=== PATIENT | female | born 1985 | race Caucasian/White ===

== ENCOUNTER 2023-08-30 23:06 | Emergency (ER) | payer BC ==
[2023-08-30] MEDS: Sodium Chloride 0.9% 1,000 ML IV ONE (23:35)
[2023-08-30 23:36] LABS: BASOPHILS ABSOLUTE AUTO 0.07 K/uL (0.00-0.20); BASOPHILS PERCENT AUTO 1.1 % (0.0-1.0); EOSINOPHILS PERCENT AUTO 3.3 % (0.0-6.0); HEMATOCRIT 39.7 % (37.0-47.0); HEMOGLOBIN 13.1 g/dL (12.0-16.0); IMMATURE GRAN ABSOLUTE AUTO 0.01 K/uL (0.00-0.05); IMMATURE GRAN PERCENT AUTO 0.2 % (0.0-0.4); LYMPHOCYTES ABSOLUTE AUTO 2.23 K/uL (1.00-4.80); LYMPHOCYTES PERCENT AUTO 36.5 % (24.0-44.0); MEAN CORPUSCULAR VOLUME 96.8 fL (83.0-99.0); MEAN PLATELET VOLUME 11.1 fL (9.4-12.3); MONOCYTES ABSOLUTE AUTO 0.43 K/uL (0.00-0.80); NEUTROPHILS ABSOLUTE AUTO 3.17 K/uL (1.80-7.70); NEUTROPHILS PERCENT AUTO 51.9 % (41.0-71.0); PLATELET COUNT,PLT 210 K/uL (150-400); WHITE BLOOD CELL COUNT,WBC 6.11 K/uL (3.9-11.3)
[2023-08-30] MEDS: Dexamethasone 4 MG/ML SDV IVPUSH ONE (23:37)
[2023-08-30] MEDS: Prochlorperazine 10 MG/2 ML SDV IVPUSH ONE (23:37)
[2023-08-30] MEDS: diphenhydrAMINE 50 MG/ML SDV IVPUSH ONE (23:37)
[2023-08-30] MEDS: Ketorolac 30 MG/ML SDV IVPUSH ONE (23:37)
[2023-08-30] MEDS: Sodium Chloride 0.9% 2.5 ML Syringe FLUSH PRN (23:37)
[2023-08-30] MEDS: Sodium Chloride 0.9% 10 ML Syringe FLUSH PRN (23:37)
[2023-08-31 00:11] LABS: A/G RATIO 1.3 (0.9-1.6); ALBUMIN 3.8 g/dL (3.4-5.0); CALCIUM 8.7 mg/dL (8.5-10.1); CARBON DIOXIDE,CO2 21.7 mmol/L (21.0-32.0); CREATININE 0.8 mg/dL (0.6-1.0); EST CRCL DRUG DOSING (CG) 71.66 mL/min; PROTEIN TOTAL,TP 6.7 g/dL (6.4-8.2)
== END 2023-08-31 00:42 | disposition home or self-care (01) ==
LOC: MW.ED 23:06
DX: G43.909 Migraine, unspecified, not intractable, without status migrainosus (principal); Z75.8 Other problems related to medical facilities and other health care
CPT/HCPCS: 36415; 80053; 84703; 85025; 96361; 96374; 96375; 99283; J0780; J1100; J1200; J1885; J3490; J7030; 99284

== ENCOUNTER 2024-04-06 16:47 | Emergency (ER) | payer BC | END 2024-04-06 17:25 | disposition left against medical advice (07) | LOC: MW.ED 16:47 | DX: Z53.21 Procedure and treatment not carried out due to patient leaving prior to being seen by health care provider (principal) ==

== ENCOUNTER 2024-04-09 02:23 | Emergency (ER) | payer BC ==
[2024-04-09] MEDS: Sodium Chloride 0.9% 1,000 ML IV ONE (03:15)
[2024-04-09] MEDS: Metoclopramide 10 MG/2 ML SDV IVPUSH ONE (03:48)
[2024-04-09] MEDS: diphenhydrAMINE 50 MG/ML SDV IVPUSH ONE (03:48)
[2024-04-09] MEDS: Ketorolac 30 MG/ML SDV IVPUSH ONE (04:13)
== END 2024-04-09 05:14 | disposition home or self-care (01) ==
LOC: MW.ED 02:23
DX: B34.9 Viral infection, unspecified (principal)
CPT/HCPCS: 87428; 96374; 96375; 99284; J1200; J1885; J2765; J7030; 99282

== ENCOUNTER 2024-06-25 07:49 | Emergency (ER) | payer BC ==
[2024-06-25] MEDS ORDERED: Sodium Chloride 0.9% 10 ML Syringe FLUSH PRN ×2 (08:13→10:11)
[2024-06-25] MEDS ORDERED: Sodium Chloride 0.9% 2.5 ML Syringe FLUSH PRN ×2 (08:13→10:11)
[2024-06-25] MEDS: Ondansetron 4 MG/2 ML SDV IVPUSH ONE (08:24)
[2024-06-25] MEDS: Sodium Chloride 0.9% 1,000 ML IV ONE (08:24)
[2024-06-25] MEDS: Morphine 4 MG/ML Syringe IVPUSH ONE (08:25)
[2024-06-25 08:33] LABS: BASOPHILS ABSOLUTE AUTO 0.03 K/uL (0.00-0.20); BASOPHILS PERCENT AUTO 0.3 % (0.0-1.0); EOSINOPHILS ABSOLUTE AUTO 0.06 K/uL (0.00-0.45); EOSINOPHILS PERCENT AUTO 0.5 % (0.0-6.0); HEMATOCRIT 35.1 % (37.0-47.0); HEMOGLOBIN 11.9 g/dL (12.0-16.0); IMMATURE GRAN ABSOLUTE AUTO 0.06 K/uL (0.00-0.05); IMMATURE GRAN PERCENT AUTO 0.5 % (0.0-0.4); LYMPHOCYTES ABSOLUTE AUTO 1.33 K/uL (1.00-4.80); LYMPHOCYTES PERCENT AUTO 11.9 % (24.0-44.0); MEAN CORPUSCULAR HEMOGLOBIN 31.9 pg (28.0-32.0); MEAN CORPUSCULAR HGB CONC 33.9 g/dL (32.0-36.0); MEAN CORPUSCULAR VOLUME 94.1 fL (83.0-99.0); MEAN PLATELET VOLUME 11.1 fL (9.4-12.3); MONOCYTES ABSOLUTE AUTO 0.95 K/uL (0.00-0.80); MONOCYTES PERCENT AUTO 8.5 % (0.0-8.0); NEUTROPHILS ABSOLUTE AUTO 8.79 K/uL (1.80-7.70); NEUTROPHILS PERCENT AUTO 78.3 % (41.0-71.0); PLATELET COUNT,PLT 140 K/uL (150-400); RED BLOOD CELL COUNT 3.73 M/uL (4.10-5.30); WHITE BLOOD CELL COUNT,WBC 11.22 K/uL (3.9-11.3)
[2024-06-25 09:00] LABS: INR 1.17 (0.86-1.11)
[2024-06-25 09:01] LABS: A/G RATIO 1.1 (0.9-1.6); ALBUMIN 3.9 g/dL (3.4-5.0); BILIRUBIN TOTAL 2.7 mg/dL (0.2-1.0); CALCIUM 9.3 mg/dL (8.5-10.1); CARBON DIOXIDE,CO2 25.7 mmol/L (21.0-32.0); CREATININE 0.8 mg/dL (0.6-1.0); EST CRCL DRUG DOSING (CG) 80.72 mL/min; POTASSIUM,K 3.7 mmol/L (3.5-5.1); PROTEIN TOTAL,TP 7.6 g/dL (6.4-8.2)
[2024-06-25] MEDS: Iopamidol 755 MG/ML 500 ML Multipack Bottle IVPUSH STA (09:15)
[2024-06-25] MEDS: Heparin Sodium/0.45% NaCl 25,000 UNITS/250 ML BAG IV SCH (10:39)
[2024-06-25] MEDS: Heparin Sodium 5,000 Units/ML Vial IVPUSH ONE (10:39)
[2024-06-25] MEDS: Heparin Sodium 5,000 Units/ML Vial SUBCUT ONE (10:45)
== END 2024-06-25 11:29 ==
LOC: MW.ED 07:49
DX: I82.4Y2 Acute embolism and thrombosis of unspecified deep veins of left proximal lower extremity (principal); Z75.8 Other problems related to medical facilities and other health care
CPT/HCPCS: 36415; 73706; 76856; 80053; 82550; 84703; 85025; 85610; 85730; 93971; 96365; 96375; 99285; J1644; J2270; J2405; J7030; Q9967